=== PATIENT | female | born 1985 | race Hispanic/Latino ===

== ENCOUNTER 2019-12-24 07:36 | Day surgery (SDC) | payer BC ==
[2019-12-20 15:42] LABS: BASOPHILS % (AUTO) 0.7 % (0.0-5.0); EOSINOPHILS % (AUTO) 3.9 % (0.0-8.0); HEMATOCRIT 38.8 % (36-48); LYMPHOCYTES % (AUTO) 31.4 % (21.0-51.0); MEAN CORPUSCULAR HEMOGLOBIN 24.6 pg (27.0-33.0); MEAN CORPUSCULAR HGB CONC 31.4 g/dL (32.0-36.0); MEAN CORPUSCULAR VOLUME 78.4 fL (79-99); MONOCYTES % (AUTO) 4.1 % (3.0-13.0); NEUTROPHILS % (AUTO) 59.3 % (40.0-77.0); PLATELET COUNT (AUTO) 236 K/uL (130-400); RED BLOOD CELL COUNT(AUTO) 4.95 MIL/uL (4.00-5.50); RED CELL DISTRIBUTION WIDTH 14.5 % (11.0-15.5); WHITE BLOOD COUNT (AUTO) 5.4 K/uL (4.8-10.8)
[2019-12-20 15:44] VITALS: BP 162/88
[2019-12-20 15:50] LABS: CREATININE 0.5 mg/dL (0.5-1.5); POTASSIUM 3.6 mmol/L (3.5-5.1)
[2019-12-24] VITALS (18 sets, daily range): BP systolic 122–160; BP diastolic 73–94
[~2019-12-24] VITALS: Ht 157.5 cm; Wt 112.5 kg
[~2019-12-24 07:36] MED LIST: APRE30TA2 PO; CALDOLOR 800MG+NS 250ML 250 ML IV SCH; DULA1.5P SQ; LACTATED RINGERS 1000ML 1,000 ML IV SCH; METF-444 PO; ROSU5TAB12 PO; VITAMIN D PO
[2019-12-24] MEDS ORDERED: SODIUM CHLORIDE 0.9% 1000ML 1,000 ML IV ONE (08:11)
[2019-12-24] MEDS ORDERED: PROPOFOL 10 MG/ML 20ML VIAL IV ONE (08:26)
[2019-12-24] MEDS ORDERED: SUCCINYLCHOLINE CHLORIDE 20 MG/ML 10 ML VIAL ONE (08:26)
[2019-12-24] MEDS ORDERED: ROCURONIUM 10MG/1ML SYR 10 MG/ML ML ONE (08:26)
[2019-12-24] MEDS ORDERED: FENTANYL CITRATE PF 50 MCG/1 ML 2ML VIAL ONE ×2 (08:26→11:22)
[2019-12-24] MEDS ORDERED: LIDOCAINE PF 2% 5ML ABBOJECT ONE (08:26)
[2019-12-24] MEDS ORDERED: BUPIVACAINE/PF 0.25% 30ML VIAL IJ ONE (10:06)
[2019-12-24] MEDS ORDERED: MIDAZOLAM HCL 1 MG/ML 2ML VIAL ONE (10:44)
[2019-12-24] MEDS ORDERED: GLYCOPYRROLATE 1 MG/5 ML SYRINGE ONE (11:51)
[2019-12-24] MEDS ORDERED: NEOSTIGMINE 5MG/5ML SYR IV ONE (11:51)
[2019-12-24] MEDS ORDERED: MEPERIDINE-PF 25 MG/ML SYG ONE (12:38)
[2019-12-24] MEDS ORDERED: ONDANSETRON HCL 4 MG/2 ML VIAL ONE (13:03)
--- NOTE | 2019-12-24 13:15 | NUR ---
PATIENT ARRIVED TO DAY PATIENT VIA STRETCHER BY DARYA SANTOS.PATIENT [id number], RESPIRATIONS UNLABORED, VITAL SIGNS STABLE. DENIES ANY PAIN AT THIS TIME. DERMABOND TO UMBILICUS AREA, NO BLEEDING OR DRAINAGE NOTED.
--- NOTE | 2019-12-24 13:53 | NUR ---
DISCHARGE INSTRUCTIONS PROVIDED TO PATIENT AND PATIENT'S SPOUSE, FOLLOW UP APPOINTMENT AND PRESCRIPTIONS PROVIDED WELL. ALL QUESTIONS CONCERNS ADDRESSED.
--- NOTE | 2019-12-24 14:10 | NUR ---
PATIENT DISCHARGED FROM FACILITY WHEELCHAIR BY SAMANTHA FITZGERALD. PATIENT ASSISTED INTO PRIVATE VEHICLE DRIVEN BY SPOUSE.
== END 2019-12-24 14:10 | disposition home or self-care (01) ==
LOC: DAH 07:36
DX: R10.2 Pelvic and perineal pain (principal); G89.29 Other chronic pain; E11.9 Type 2 diabetes mellitus without complications; L40.50 Arthropathic psoriasis, unspecified; Z88.0 Allergy status to penicillin; Z98.891 History of uterine scar from previous surgery; Z98.51 Tubal ligation status; Z79.899 Other long term (current) drug therapy; Z82.49 Family history of ischemic heart disease and other diseases of the circulatory system; Z83.3 Family history of diabetes mellitus
CPT/HCPCS: 36415; 49320; 80048; 82948 ×2; 84703; 85025; A4215 ×3; A4221; A4222; A4223 ×2; A4344; A4351; A4649; A4663; A6260; C1769 ×2; G0168; J0330; J1741; J2001; J2175; J2250; J2405; J2704; J2710; J3010 ×2; J3490 ×2; J7030 ×3